=== PATIENT | female | born 1985 | race Caucasian/White ===

== ENCOUNTER 2018-12-10 18:05 | Observation (INO) | payer SELFPAY ==
[2018-12-10 18:38] VITALS: BP 111/66
[2018-12-10] MEDS ORDERED: PREN-154 PO (18:41)
== END 2018-12-10 19:22 | disposition home or self-care (01) ==
LOC: EDBD → 4S 18:05 → OBSVTOIN 19:17 → INTOOBSV 19:17
PROVIDERS: ADMIT Obstetrics & Gynecology; ATTEND Obstetrics & Gynecology
DX: O36.8330 Maternal care for abnormalities of the fetal heart rate or rhythm, third trimester, not applicable or unspecified (principal); Z3A.35 35 weeks gestation of pregnancy
CPT/HCPCS: 81002; G0378

== ENCOUNTER 2018-12-17 18:08 | Observation (INO) | payer SELFPAY ==
[~2018-12-17] VITALS: Ht 157.5 cm; Wt 66.2 kg
[~2018-12-17 18:08] MED LIST: PREN-154 PO
[2018-12-17 20:01] VITALS: BP 107/73
== END 2018-12-17 20:52 | disposition home or self-care (01) ==
LOC: 4S 18:08
PROVIDERS: ADMIT Obstetrics & Gynecology; ATTEND Obstetrics & Gynecology
DX: O36.5930 Maternal care for other known or suspected poor fetal growth, third trimester, not applicable or unspecified (principal); Z3A.36 36 weeks gestation of pregnancy; O09.523 Supervision of elderly multigravida, third trimester
CPT/HCPCS: 76805; 87077; 87086; 87186; G0378

== ENCOUNTER 2018-12-30 18:01 | Observation (INO) | payer SELFPAY ==
[~2018-12-30] VITALS: Ht 154.9 cm; Wt 67.6 kg
[2018-12-30 13:42] VITALS: BP 110/72
== END 2018-12-30 21:52 | disposition home or self-care (01) ==
LOC: 4S 18:01
PROVIDERS: ADMIT Obstetrics & Gynecology; ATTEND Obstetrics & Gynecology
DX: O36.8330 Maternal care for abnormalities of the fetal heart rate or rhythm, third trimester, not applicable or unspecified (principal); Z3A.38 38 weeks gestation of pregnancy
CPT/HCPCS: 76811; G0378

== ENCOUNTER 2019-01-04 10:00 | Inpatient (IN) | payer MEDICAID ==
[~2019-01-04] VITALS: Ht 154.9 cm; Wt 67.6 kg
[2019-01-04] MEDS ORDERED: RINGERS SOLUTION,LACTATED 1,000 ML IV PRN (10:31)
[2019-01-04] MEDS ORDERED: OXYTOCIN 30 UNITS/LACT RINGERS 500 ML IV ONE (10:31)
[2019-01-04 10:37] VITALS: BP 114/71
[2019-01-04] MEDS ORDERED: METOCLOPRAMIDE HCL 5 MG/ML 2 ML VIAL IVP PRN (10:45)
[2019-01-04] MEDS ORDERED: TERBUTALINE SULFATE 1 MG/ML VIAL SQ PRN ×2 (10:45→15:15)
[2019-01-04] MEDS ORDERED: METHYLERGONOVINE MALEATE 0.2 MG/ML VIAL IM PRN ×2 (10:45→15:15)
[2019-01-04] MEDS ORDERED: LIDOCAINE/PF 1% 30 ML VIAL INJ PRN ×2 (10:45→15:15)
[2019-01-04] MEDS ORDERED: FentaNYL CITRATE-PF 100 MCG/2 ML VIAL IVP PRN (10:45)
[2019-01-04] MEDS ORDERED: CITRIC ACID/SODIUM CITRATE 30 ML SOLUTION UDCUP PO PRN (10:45)
[2019-01-04] MEDS: RINGERS SOLUTION,LACTATED 1,000 ML IV SCH ×2 (11:00→21:48)
[2019-01-04] MEDS ORDERED: DINOPROSTONE 10 MG VAGINAL SUPPOSITORY VG ONE (11:00)
[2019-01-04 11:12] LABS: BASOPHILS % (AUTO) 0.8 % (0.0-2.0); EOSINOPHILS % (AUTO) 0.7 % (1.0-6.0); HEMATOCRIT 26.9 % (36-46); HEMOGLOBIN 8.5 g/dL (12.0-16.0); LYMPHOCYTES % (AUTO) 13.4 % (22.0-44.0); MEAN CORPUSCULAR HEMOGLOBIN 23.1 pg (26.0-34.0); MEAN CORPUSCULAR HGB CONC 31.7 G/dL (31.0-37.0); MEAN CORPUSCULAR VOLUME 73 fL (80-100); MONOCYTES # (AUTO) 0.5 K/uL (0.1-1.0); MONOCYTES % (AUTO) 6.6 % (2.0-9.0); NEUTROPHILS # (AUTO) 5.8 K/uL (1.8-7.7); NEUTROPHILS % (AUTO) 78.5 % (40.0-70.0); PLATELET COUNT (AUTO)-OB 219 K/uL (150-450); RED BLOOD CELL COUNT(AUTO) 3.68 MIL/uL (4.00-5.20); RED CELL DISTRIBUTION WIDTH 19.1 % (11.5-14.5)
[2019-01-04] MEDS: VANCOMYCIN HCL 1 GM/D5% WATER 200 ML IV SCH (15:35)
[2019-01-04] MEDS: FentaNYL CITRATE-PF 100 MCG/2 ML VIAL IVP PRN ×3 (15:36→20:27)
[2019-01-04] MEDS ORDERED: OXYGEN THERAPY IH SCH (20:00)
[2019-01-04] MEDS ORDERED: BUTORPHANOL TARTRATE 2 MG/ML VIAL IM ONE (22:15)
[2019-01-04] MEDS ORDERED: BUTORPHANOL TARTRATE 2 MG/ML VIAL IVP ONE (22:30)
[2019-01-04] MEDS ORDERED: ROPIVACAINE HCL/PF 0.2% 100 ML ED ONE (22:38)
[2019-01-04] MEDS ORDERED: BUPIVACAINE HCL/PF 0.25% 10 ML VIAL ONE (22:38)
[2019-01-04] MEDS ORDERED: -PHARMACY NOTE- MISC ONE (23:00)
[2019-01-04] MEDS ORDERED: OXYTOCIN 30 UNITS/LACT RINGERS 500 ML IV PRN (23:51)
[2019-01-05] MEDS ORDERED: NALBUPHINE HCL 10 MG/ML VIAL IVP PRN
[2019-01-05] MEDS ORDERED: ONDANSETRON HCL 4 MG/2 ML VIAL IVP PRN
[2019-01-05] MEDS ORDERED: DiphenhydrAMINE HCL 50 MG/ML VIAL IVP PRN
[2019-01-05] MEDS ORDERED: ROPIVACAINE HCL/PF 0.2% 100 ML ED SCH
[2019-01-05] MEDS: VANCOMYCIN HCL 1 GM/D5% WATER 200 ML IV SCH (00:24)
[2019-01-05] MEDS: RINGERS SOLUTION,LACTATED 1,000 ML IV SCH (02:00)
[2019-01-05] MEDS ORDERED: MINERAL OIL 30 ML UDCUP ONE (02:45)
[2019-01-05] MEDS ORDERED: OXYTOCIN 30 UNITS/LACT RINGERS 500 ML IV ONE (03:06)
[2019-01-05] MEDS ORDERED: LIDOCAINE/PF 1% 30 ML VIAL INJ PRN (03:15)
[2019-01-05] MEDS ORDERED: LANOLIN 7 GM OINTMENT TP PRN (03:15)
[2019-01-05] MEDS ORDERED: IBUPROFEN 800 MG TABLET PO PRN (03:15)
[2019-01-05] MEDS ORDERED: MAGNESIUM HYDROXIDE SUSPENSION 30 ML UDCUP PO PRN (03:15)
[2019-01-05] MEDS ORDERED: OxyCODONE HCL/ACETAMINOPHEN 5-325 MG TABLET PO PRN ×2 (03:15)
[2019-01-05] MEDS ORDERED: GLYCERIN/WITCH HAZEL LEAF 40 PADS JAR TP PRN (03:15)
[2019-01-05] MEDS ORDERED: BENZOCAINE 20%/MENTHOL 56 GM SPRAY CANISTER TP PRN (03:15)
[2019-01-05] MEDS ORDERED: MINERAL OIL 90 ML BOTTLE TP ONE (04:45)
[2019-01-05] MEDS ORDERED: MINERAL OIL 30 ML UDCUP VG ONE (07:45)
[2019-01-06 07:42] LABS: BASOPHILS % (AUTO) 0.5 % (0.0-2.0); EOSINOPHILS % (AUTO) 0.6 % (1.0-6.0); HEMATOCRIT 24.4 % (36-46); HEMOGLOBIN 7.8 g/dL (12.0-16.0); LYMPHOCYTES # (AUTO) 1.6 K/uL (1.0-4.8); LYMPHOCYTES % (AUTO) 14.2 % (22.0-44.0); MEAN CORPUSCULAR HEMOGLOBIN 23.2 pg (26.0-34.0); MEAN CORPUSCULAR HGB CONC 31.9 G/dL (31.0-37.0); MEAN CORPUSCULAR VOLUME 73 fL (80-100); MONOCYTES # (AUTO) 0.7 K/uL (0.1-1.0); NEUTROPHILS # (AUTO) 9.1 K/uL (1.8-7.7); NEUTROPHILS % (AUTO) 78.7 % (40.0-70.0); PLATELET COUNT (AUTO)-OB 228 K/uL (150-450); RED BLOOD CELL COUNT(AUTO) 3.36 MIL/uL (4.00-5.20); RED CELL DISTRIBUTION WIDTH 19.2 % (11.5-14.5)
[2019-01-07] MEDS ORDERED: DOCU-275 PO (10:54)
[2019-01-07] MEDS ORDERED: IBUP-2070 PO (10:54)
[2019-01-07] MEDS ORDERED: ACET-2247 PO (10:55)
== END 2019-01-07 11:50 | disposition home or self-care (01) | DRG 560 ==
LOC: OBSVTOIN 10:00 → 4S 10:00
PROVIDERS: ADMIT Obstetrics & Gynecology; ATTEND Obstetrics & Gynecology
PROC: 10E0XZZ Delivery of Products of Conception, External Approach (ICD-10-PCS; principal; 2019-01-05)
PROC: 0KQM0ZZ Repair Perineum Muscle, Open Approach (ICD-10-PCS; 2019-01-05)
PROC: 3E0R3BZ Introduction of Anesthetic Agent into Spinal Canal, Percutaneous Approach (ICD-10-PCS; 2019-01-05)
PROC: 00HU33Z Insertion of Infusion Device into Spinal Canal, Percutaneous Approach (ICD-10-PCS; 2019-01-05)
DX: O70.1 Second degree perineal laceration during delivery (principal); Z37.0 Single live birth; Z3A.39 39 weeks gestation of pregnancy
CPT/HCPCS: 86850; 86900; 86901; J0595; J2590; J2795; J3010; J3370; J3490; J7120